=== PATIENT | female | born 1995 | race Caucasian/White ===

== ENCOUNTER 2018-04-30 18:23 | Observation (INO) ==
[2018-04-30 18:36] VITALS: BMI 30.6
--- NOTE | 2018-04-30 19:06 | DR.GENAD ---
HPI Time Seen Time Seen by Provider: 04/30/18 18:40 PCP Primary Care Physician: erin Complaint/Symptoms Chief Complaint:: pt states" [address] Van told me i had cryptospiridium she gave a rx for zofran i have a appointment with dr lowe in the am. I'm not keeping anything down I am either vomiting or having diarrhea every hour the diarrhea is worse. My heart rate started acting up and with my hx I got concerned" Source History Provided: Patient Mode of Arrival Mode of Arrival: Ambulatory Timing Onset of Chief Complaint: 04/25/18 PMH PMH Past Medical History: Yes Past Medical History: SVT Past Surgical History: Yes Past Surgical History Comment: heart ablasion Family History History of Family Medical Conditions: Yes Family Medical History: Hypertension Social History Do you use any recreational Drugs:: No infectious screening In the last 2 months have you had wt loss of >10#?: NO Have you had fever, night sweats or hemotysis?: No Have you traveled outside the country in the last 6 months?: No Isolation: Standard PE Vital Signs Vitals: Temperature 97.8 F Pulse Rate [Apical] 78 Pulse Rate 111 Respiratory Rate 22 Blood Pressure [Right Arm] 133/61 Blood Pressure [Left Arm] 115/74 Blood Pressure 118/65 O2 Sat by Pulse Oximetry 96 General Limitations: No Limitations General Appearance: Alert and In No Apparent Distress Head Head Exam: Normal Inspection, Atraumatic and Normocephalic Eyes Eye exam: Normal Appearance, PERRL and EOMI ENT ENT Exam: Normal Exam and Normal Oropharynx External Ear Exam: Normal External Inspection and Auricular Hematoma TM/Canal Exam: Bilateral: Normal Nose Exam: Normal Nose Exam Mouth Exam: Normal Inspection Throat Exam: Normal Inspection Neck Neck Exam: Normal Inspection and Full ROM Chest Chest Inspection: Normal Inspection and Symmetric Chest Wall Rise Respiratory Respiratory Exam: Normal Lung Sounds Bilat Respiratory Exam: Bilateral: Clear to Auscultation Cardiovascular Cardiovascular Exam: Regular Rate and Normal Rhythm Abdominal Exam Abdominal Exam: Normal Inspection, Normal Bowel Sounds and Soft Abdominal Tenderness: RUQ Extremities Extremities Exam: Normal Inspection and Full ROM Back Back Exam: Normal Inspection and Full ROM Neurologic Neurological Exam: Alert, Oriented X3 and CN II-XII Intact Psychiatric Psychiatric Exam: Normal Affect Skin Skin Exam: Warm, Dry and Intact COURSE Consultation Called: 20:40 Consultation Comments: Dr. Kirk agreed to admit for further evaluation and treatment ROR Labs Reviewed Laboratory Results Reviewed?: Yes Result Diagrams: 05/01/18 04:00 05/01/18 04:00 Laboratory: WBC 6.9 X10^3/uL (3.6-10.0) 05/01/18 04:00 RBC 6.21 X10^6/uL (3.5-5.4) H 05/01/18 04:00 Hgb 12.0 g/dL (12.0-16.0) 05/01/18 04:00 Hct 37.6 % (36.0-47.0) 05/01/18 04:00 MCV 60.4 fL (80.0-100.0) L 05/01/18 04:00 MCH 19.3 pg (27.0-34.0) L 05/01/18 04:00 MCHC 31.9 g/dL (33.0-35.0) L 05/01/18 04:00 RDW 18.3 % (11.6-16.5) H 05/01/18 04:00 Plt Count 300 X10^3/uL (150.0-450.0) 05/01/18 04:00 Plt Count Comment Adequate (ADEQUATE) 05/01/18 04:00 MPV 8.8 fL (7.4-11.0) 05/01/18 04:00 Neut % (Auto) 48.5 % (42.0-75.0) 05/01/18 04:00 Lymph % (Auto) 31.5 % (21.0-51.0) 05/01/18 04:00 [place] % (Auto) 17.4 % (0.0-13.0) H 05/01/18 04:00 Eos % (Auto) 1.9 % (0.9-2.9) 05/01/18 04:00 Baso % (Auto) 0.7 % (0.2-1.0) 05/01/18 04:00 Neut # (Auto) 3.4 x10^3/uL (2.2-4.8) 05/01/18 04:00 Lymph # (Auto) 2.2 X10^3/uL (1.3-2.9) 05/01/18 04:00 [place] # (Auto) 1.2 x10^3/uL (0.3-0.8) H 05/01/18 04:00 Eos # (Auto) 0.1 x10^3/uL (0.0-0.2) 05/01/18 04:00 Baso # (Auto) 0.0 X10^3/uL (0.0-0.1) 05/01/18 04:00 Absolute Nucleated RBC 0.0 /100WBC 05/01/18 04:00 Plt Morphology Comment Normal (NORMAL) 05/01/18 04:00 RBC Morphology Abnormal (NORMAL) A 05/01/18 04:00 Hypochromasia 3+ A 05/01/18 04:00 Poikilocytosis Slight A 04/30/18 19:28 Anisocytosis Slight A 04/30/18 19:28 Microcytosis 2+ A 05/01/18 04:00 Ovalocytes Slight A 04/30/18 19:28 Sodium 141 mmol/L (136-145) 05/01/18 04:00 Corrected Sodium TNP 05/01/18 04:00 Potassium 3.1 mmol/L (3.5-5.1) L 05/01/18 04:00 Chloride 104 mmol/L (98-107) 05/01/18 04:00 Carbon Dioxide 26.4 mmol/L (21-32) 05/01/18 04:00 BUN 7 mg/dL (7-18) 05/01/18 04:00 Creatinine 0.94 mg/dL (0.55-1.02) 05/01/18 04:00 Est GFR (MDRD) Af Amer > 60 (>60) 05/01/18 04:00 Est GFR (MDRD) Non-Af > 60 (>60) 05/01/18 04:00 Glucose 84 mg/dL (65-99) 05/01/18 04:00 Calcium 8.4 mg/dL (8.5-10.1) L 05/01/18 04:00 Corrected Calcium 9.1 mg/dL (8.5-10.1) 05/01/18 04:00 Magnesium 1.6 mg/dL (1.7-2.9) L 05/01/18 04:00 Total Bilirubin 0.40 mg/dL (0.2-1.0) 05/01/18 04:00 AST 23 Units/L (15-37) 05/01/18 04:00 ALT 34 Units/L (12-78) 05/01/18 04:00 Alkaline Phosphatase 77 Units/L (46-116) 05/01/18 04:00 C-Reactive Protein 29.30 mg/L (0-3.0) H 04/30/18 19:28 Total Protein 6.7 g/dL (6.4-8.2) 05/01/18 04:00 Albumin 3.1 g/dL (3.4-5.0) L 05/01/18 04:00 Globulin 3.6 g/dL (2.5-4.5) 05/01/18 04:00 Albumin/Globulin Ratio 0.9 Ratio (1.1-2.1) L 05/01/18 04:00 Specimen Type Cancelled 05/01/18 05:00 Urine Color Cancelled 05/01/18 05:00 Urine Appearance Cancelled 05/01/18 05:00 Urine pH Cancelled 05/01/18 05:00 Ur Specific [place] Cancelled 05/01/18 05:00 Urine Protein Cancelled 05/01/18 05:00 Urine Glucose (UA) Cancelled 05/01/18 05:00 Urine Ketones Cancelled 05/01/18 05:00 Urine Occult Blood Cancelled 05/01/18 05:00 Urine Nitrite Cancelled 05/01/18 05:00 Urine Bilirubin Cancelled 05/01/18 05:00 Urine Urobilinogen Cancelled 05/01/18 05:00 Ur Leukocyte Esterase Cancelled 05/01/18 05:00 Diagnosis Discharge Problem: Infection due to cryptosporidium, Acute hypokalemia ADDITIONAL NOTES Additional Notes Additional Notes: Patient admitted for further treatment and evaluation
[2018-04-30] MEDS ORDERED: NS 1000 ML 1,000 ML IV ONE (19:20)
[2018-04-30] MEDS ORDERED: PHENERGAN INJ 25 MG IV ONE (19:20)
[2018-04-30] MEDS ORDERED: PHENERGAN INJ 25 MG ONE (19:23)
[2018-04-30] MEDS ORDERED: NS 1000 ML 0 ML ONE (19:23)
[2018-04-30 19:36] LABS: BASOPHILS % (AUTO) 0.4 % (0.2-1.0); EOSINOPHILS # (AUTO) 0.1 x10^3/uL (0.0-0.2); EOSINOPHILS % (AUTO) 1.1 % (0.9-2.9); HEMATOCRIT 43.2 % (36.0-47.0); HEMOGLOBIN 13.9 g/dL (12.0-16.0); LYMPHOCYTES # (AUTO) 1.7 X10^3/uL (1.3-2.9); LYMPHOCYTES % (AUTO) 16.6 % (21.0-51.0); MEAN CORPUSCULAR HEMOGLOBIN 19.4 pg (27.0-34.0); MEAN CORPUSCULAR HGB CONC 32.2 g/dL (33.0-35.0); MEAN CORPUSCULAR VOLUME 60.3 fL (80.0-100.0); MEAN PLATELET VOLUME 8.3 fL (7.4-11.0); MONOCYTES # (AUTO) 1.2 x10^3/uL (0.3-0.8); MONOCYTES % (AUTO) 11.9 % (0.0-13.0); NEUTROPHILS # (AUTO) 6.9 x10^3/uL (2.2-4.8); PLATELET COUNT 344 X10^3/uL (150.0-450.0); RED BLOOD COUNT 7.16 X10^6/uL (3.5-5.4); RED CELL DISTRIBUTION WIDTH 18.5 % (11.6-16.5); WHITE BLOOD COUNT 9.9 X10^3/uL (3.6-10.0)
[2018-04-30 19:49] LABS: ALANINE AMINOTRANSFERASE 41 Units/L (12-78); ALBUMIN 3.8 g/dL (3.4-5.0); ALKALINE PHOSPHATASE 96 Units/L (46-116); ASPARTATE AMINO TRANSFERASE 29 Units/L (15-37); BLOOD UREA NITROGEN 9 mg/dL (7-18); CALCIUM 9.3 mg/dL (8.5-10.1); CARBON DIOXIDE 26.5 mmol/L (21-32); CREATININE 0.88 mg/dL (0.55-1.02); TOTAL PROTEIN 8.2 g/dL (6.4-8.2); eGFR NON BLACK RACES > 60 (>60)
[2018-04-30 19:56] LABS: CHLORIDE 97 mmol/L (98-107); SODIUM 135 mmol/L (136-145)
[2018-04-30 20:08] LABS: PLATELET MORPHOLOGY COMMENT NORMAL (NORMAL)
[2018-04-30 20:09] LABS: ANISOCYTOSIS SLIGHT; HYPOCHROMASIA 3+; MICROCYTOSIS 2+; OVALOCYTES SLIGHT; POIKILOCYTOSIS SLIGHT
[2018-04-30] MEDS ORDERED: K-LYTE EFFERVESCENT ONE (20:14)
[2018-04-30] MEDS: K-LYTE EFFERVESCENT PO ONE (20:22)
[2018-04-30] MEDS ORDERED: NS 1000 ML 1,000 ML ONE (21:11)
[2018-04-30] MEDS ORDERED: ZOFRAN SYRUP 4 MG UDC PO ONE (21:12)
[2018-04-30] MEDS: NS + KCL 20 MEQ/L 1,000 ML IV SCH (21:16)
[2018-04-30] MEDS ORDERED: ZOFRAN SYRUP 4 MG UDC ONE (21:19)
[2018-04-30] MEDS ORDERED: NS 1000 ML 1,000 ML IV SCH (22:00)
[2018-04-30] MEDS ORDERED: ATIVAN TAB 1 MG ONE (22:22)
[2018-04-30] MEDS ORDERED: ROCEPHIN 1 GRAM IV PREMIX 1 G/50 ML IV.SOLN. IV SCH (23:00)
[2018-04-30] MEDS: ROCEPHIN VIAL 2 GRAMS IVP SCH (23:45)
[2018-05-01 05:23] LABS: BASOPHILS % (AUTO) 0.7 % (0.2-1.0); EOSINOPHILS # (AUTO) 0.1 x10^3/uL (0.0-0.2); EOSINOPHILS % (AUTO) 1.9 % (0.9-2.9); HEMATOCRIT 37.6 % (36.0-47.0); LYMPHOCYTES # (AUTO) 2.2 X10^3/uL (1.3-2.9); LYMPHOCYTES % (AUTO) 31.5 % (21.0-51.0); MEAN CORPUSCULAR HEMOGLOBIN 19.3 pg (27.0-34.0); MEAN CORPUSCULAR HGB CONC 31.9 g/dL (33.0-35.0); MEAN CORPUSCULAR VOLUME 60.4 fL (80.0-100.0); MEAN PLATELET VOLUME 8.8 fL (7.4-11.0); MONOCYTES # (AUTO) 1.2 x10^3/uL (0.3-0.8); MONOCYTES % (AUTO) 17.4 % (0.0-13.0); NEUTROPHILS # (AUTO) 3.4 x10^3/uL (2.2-4.8); NEUTROPHILS % (AUTO) 48.5 % (42.0-75.0); PLATELET COUNT 300 X10^3/uL (150.0-450.0); RED BLOOD COUNT 6.21 X10^6/uL (3.5-5.4); RED CELL DISTRIBUTION WIDTH 18.3 % (11.6-16.5); WHITE BLOOD COUNT 6.9 X10^3/uL (3.6-10.0)
[2018-05-01 05:40] LABS: ALANINE AMINOTRANSFERASE 34 Units/L (12-78); ALBUMIN 3.1 g/dL (3.4-5.0); ALKALINE PHOSPHATASE 77 Units/L (46-116); ASPARTATE AMINO TRANSFERASE 23 Units/L (15-37); BLOOD UREA NITROGEN 7 mg/dL (7-18); CALCIUM 8.4 mg/dL (8.5-10.1); CARBON DIOXIDE 26.4 mmol/L (21-32); CHLORIDE 104 mmol/L (98-107); COR CA(FOR HYPOALB) 9.1 mg/dL (8.5-10.1); CREATININE 0.94 mg/dL (0.55-1.02); SODIUM 141 mmol/L (136-145); TOTAL PROTEIN 6.7 g/dL (6.4-8.2); eGFR NON BLACK RACES > 60 (>60)
[2018-05-01] MEDS: NS + KCL 20 MEQ/L 1,000 ML IV SCH ×2 (05:52→22:04)
[2018-05-01 06:01] LABS: HYPOCHROMASIA 3+; MICROCYTOSIS 2+; PLATELET MORPHOLOGY COMMENT NORMAL (NORMAL)
[2018-05-01] MEDS ORDERED: POTASSIUM CHLORIDE LIQ 20 MEQ UDC PO ONE (06:19)
[2018-05-01] MEDS ORDERED: POTASSIUM CHLORIDE LIQ 20 MEQ UDC ONE (06:22)
[2018-05-01] MEDS: MAGNESIUM SULFATE 1 GRAM/100 mL PREMIX 1 GM/100 ML BAG IV PRN ×2 (09:52→11:25)
[2018-05-01 10:10] LABS: BILIRUBIN,URINE NEGATIVE (NEGATIVE); BLOOD/HEMOGLOBIN,URINE NEGATIVE (NEGATIVE); GLUCOSE, URINE NEGATIVE (NEGATIVE); KETONES,URINE 1+ (NEGATIVE); LEUKOCYTE ESTERASE ,URINE 1+ (NEGATIVE); NITRITES,URINE NEGATIVE (NEGATIVE); PROTEIN,URINE 2+ (NEGATIVE); UROBILINOGEN,URINE NORMAL (NORMAL)
[2018-05-01 10:12] LABS: APPEARANCE,URINE SLIGHTLY HAZY (CLEAR); COLOR,URINE DARK YELLOW (YELLOW)
[2018-05-01 10:20] LABS: BACTERIA,URINE TRACE /HPF (NEGATIVE); SQUAMOUS EPITHELIAL CELL,UR MODERATE /HPF (NEGATIVE)
[2018-05-01 10:21] LABS: AMORPHOUS SEDIMENT,UR 1+ /HPF (NEGATIVE); MUCUS,URINE FEW /HPF (NEGATIVE)
[2018-05-01] MEDS ORDERED: ZOFRAN INJ 4 MG VIAL IVP PRN (18:27)
--- NOTE | 2018-05-01 18:31 | DR.H&P ---
H&P - History & Physical for Day of: H&P Date: 04/30/18 - Chief Complaint Chief Complaint: NAUSEA, VOMITING, DIARRHEA - History of Present Illness History of Present Illness: IS A 23 YEAR OLD WHITE MALE WHO PRESENTED TO THE EMERGENCY ROOM WITH COMPLAINTS OF NAUSEA, VOMITING, AND DIARRHEA. SHE WAS SEEN IN THE ER ON 04/27/18 WELL. SHE TESTED POSITIVE FOR CRYPTOSPIRIDIUM. PAST MEDICAL HISTORY INCLUDES SVT AND A HEART ABLASION. ON ARRIVAL, VITALS WERE 98.4-111-18-98%-118/65. LABS WERE OBTAINED. ABNORMAL LAB VALUES INCLUDE THE FOLLOWING: RBC 7.16, SODIUM 135, POTASSIUM 3.0, CHLORIDE 97, CRP 29.30. SHE WAS GIVEN A NORMAL SALINE BOLUS, PHENERGAN 12.5MG IV X 1, AND ZOFRAN 4GM PO X 1 DOSE WITH ONLY MILD IMPROVEMENT IN SYMPTOMS. SHE WAS ADMITTED FOR FURTHER EVALUATION AND TREATMENT OF DEHYHDRATION, HYPOKALEMIA, CRYPTOSPROIDIUM, AND INTRACTABLE NAUSEA AND VOMITING. SHE WAS STARTED ON NS WITH 20MEQ KCL AT 125ML/HR AND ROCEPHIN 2GM IV HS. OTHERWISE, WE PLAN TO FOLLOW UP WITH AM LABS AND CONTINUE TO MONITOR. - Past Medical History Past Medical History: SVT - Past Surgical History Additional Surgical History: ABLASION - Family History Family Medical History: Hypertension - Social History Does patient currently use any type of tobacco product: No Have you used tobacco products in the last 12 months: No Does any household member use tobacco: No Alcohol Use: Occasionally Drug Use: None - Medications Home Medications: Sulfa (Sulfonamide Antibiotics) [SULFA] Allergy (Verified 04/19/18 19:32) CONTINUE taking the following medications NK 05/01/18 [History] - Review of Systems Constitutional: Fever, Sweats, Weakness Eyes: No Symptoms Reported ENT: No Symptoms Reported Respiratory: No Symptoms Reported Cardiovascular: No Symptoms Reported Gastrointestinal: Nausea, Vomiting, Abdominal Pain, Diarrhea Genitourinary: No Symptoms Reported Musculoskeletal: No Symptoms Reported Skin: No Symptoms Reported Neurological: Weakness - Physical Exam Vital Signs: Temperature 97.6 F Pulse Rate [Apical] 78 Pulse Rate 111 Respiratory Rate 18 Blood Pressure [Right Arm] 109/60 Blood Pressure [Left Arm] 115/74 Blood Pressure 118/65 O2 Sat by Pulse Oximetry 100 Oriented: Normal Eyes: Normal Ear: Normal Nose: Normal Throat: Normal Respiratory: Clear Throughout Cardiovascular: Tachycardia. negative: S3, S4, Murmur : Normal Auscultation: Bowel Sounds: Normal Palpation: Normal Tenderness: Diffuse, Mild Skin: Normal Musculoskeletal: Normal Psychiatric: Normal Mood Description: Calm Affect: Normal Speech Pattern: Clear - Assessment/Plan (1) Dehydration Status: Acute Plan: NORMAL SALINE WITH 20MEQ KCL @125ML/HR, CONTINUE TO MONITOR (2) Diarrhea due to cryptosporidium Status: Acute (3) Infection due to cryptosporidium Status: Acute Plan: ROCEPHIN 2GM IV HS, CONTINUE TO MONITOR (4) Acute hypokalemia Status: Acute Plan: NORMAL SALINE WITH 20MEQ KCL @125ML/HR, CONTINUE TO MONITOR - Allergies Allergies/Adverse Reactions: Allergies Allergy/AdvReac Type Severity Reaction Status Date / Time Sulfa (Sulfonamide Allergy Verified 04/19/18 19:32 Antibiotics) [SULFA]
--- NOTE | 2018-05-01 19:21 | PCM.PROG ---
Progress Note - Progress Note for Day of Date of Exam: 05/01/18 - Subjective Subjective: WAS ADMITTED FOR DEHYDRATION, HYPOKALEMIA, CRYPTOSPROIDIUM, AND INTRACTABLE NAUSEA AND VOMTING. TODAY, SHE IS ALERT AND ORIENTED, LYING IN BED ON MORNING ROUNDS. SHE CONTINUES WITH NAUSEA AND DIARRHEA, BUT DENIES VOMITING THIS MORNING. SHE ALSO COMPLAINS OF ABDOMINAL PAIN. ON EXAMINATION, HEART IS REGULAR IN RATE AND RHYTHM. BILATERAL LUNGS ARE CLEAR TO AUSCULTATION. ABDOMEN IS ROUND, SOFT, AND NOTED WITH MILD, DIFFUSE TENDERNESS TO PALPATION. HYPERACTIVE BOWEL SOUNDS NOTED IN ALL QUADRANTS. HER VITALS THIS MORNING ARE 98.0-76-18-99%-109/60. LABS WERE OBTAINED. ABNORMAL LAB VALUES INCLUDE THE FOLLOWING: RBC 6.21, POTASSIUM 3.1, CALCIUM 8.4, MAGNESIUM 1.6, ALBUMIN 3.1. A URINALYSIS WAS OBTAINED AND REVEALED: WBC 3-5, RBC 3-5, LEUKOCYTES 1+, BACTERIA TRACE. TODAY, WE WILL OBTAIN AN HIV SCREEN. OTHERWISE, WE WILL CONTINUE WITH CURRENT PLAN OF CARE. WE WILL FOLLOW UP WITH AM LABS AND CONTINUE TO MONITOR. - Past Medical Family Social History Past Med/Fam/Surg Hx: No changes since H&P Allergies: Allergies Sulfa (Sulfonamide Antibiotics) [SULFA] Allergy (Verified 04/19/18 19:32) - Review of Systems ROS: No change since H&P - Vital Signs and I&O's Vital Signs: Temperature 98.2 F Pulse Rate [Apical] 79 Pulse Rate 111 Respiratory Rate 18 Blood Pressure [Right Arm] 124/73 Blood Pressure [Left Arm] 115/74 Blood Pressure 118/65 O2 Sat by Pulse Oximetry 100 Intake and Output: Intake & Output 04/29/18 04/30/18 05/01/18 05/02/18 11:59 11:59 11:59 11:59 Intake Total 0 / 0 780 / 780 Balance 0 / 0 780 / 780 - Physical Exam Oriented: Normal Eyes: Normal Ear: Normal Nose: Normal Throat: Normal Respiratory: Normal Cardiovascular: Normal. negative: S3, S4, Murmur : Normal Auscultation: Bowel Sounds: Normal Palpation: Normal Tenderness: Diffuse, Mild Skin: Normal Musculoskeletal: Normal Psychiatric: Normal Mood Description: Calm Affect: Normal Speech Pattern: Clear - Laboratory and Diagnostics Result Diagrams: 05/01/18 04:00 05/01/18 08:17 Labs: Laboratory WBC 6.9 X10^3/uL (3.6-10.0) 05/01/18 04:00 RBC 6.21 X10^6/uL (3.5-5.4) H 05/01/18 04:00 Hgb 12.0 g/dL (12.0-16.0) 05/01/18 04:00 Hct 37.6 % (36.0-47.0) 05/01/18 04:00 MCV 60.4 fL (80.0-100.0) L 05/01/18 04:00 MCH 19.3 pg (27.0-34.0) L 05/01/18 04:00 MCHC 31.9 g/dL (33.0-35.0) L 05/01/18 04:00 RDW 18.3 % (11.6-16.5) H 05/01/18 04:00 Plt Count 300 X10^3/uL (150.0-450.0) 05/01/18 04:00 Plt Count Comment Adequate (ADEQUATE) 05/01/18 04:00 MPV 8.8 fL (7.4-11.0) 05/01/18 04:00 Neut % (Auto) 48.5 % (42.0-75.0) 05/01/18 04:00 Lymph % (Auto) 31.5 % (21.0-51.0) 05/01/18 04:00 [place] % (Auto) 17.4 % (0.0-13.0) H 05/01/18 04:00 Eos % (Auto) 1.9 % (0.9-2.9) 05/01/18 04:00 Baso % (Auto) 0.7 % (0.2-1.0) 05/01/18 04:00 Neut # (Auto) 3.4 x10^3/uL (2.2-4.8) 05/01/18 04:00 Lymph # (Auto) 2.2 X10^3/uL (1.3-2.9) 05/01/18 04:00 [place] # (Auto) 1.2 x10^3/uL (0.3-0.8) H 05/01/18 04:00 Eos # (Auto) 0.1 x10^3/uL (0.0-0.2) 05/01/18 04:00 Baso # (Auto) 0.0 X10^3/uL (0.0-0.1) 05/01/18 04:00 Absolute Nucleated RBC 0.0 /100WBC 05/01/18 04:00 Plt Morphology Comment Normal (NORMAL) 05/01/18 04:00 RBC Morphology Abnormal (NORMAL) A 05/01/18 04:00 Hypochromasia 3+ A 05/01/18 04:00 Poikilocytosis Slight A 04/30/18 19:28 Anisocytosis Slight A 04/30/18 19:28 Microcytosis 2+ A 05/01/18 04:00 Ovalocytes Slight A 04/30/18 19:28 Sodium 141 mmol/L (136-145) 05/01/18 04:00 Corrected Sodium TNP 05/01/18 04:00 Potassium 4.0 mmol/L (3.5-5.1) 05/01/18 08:17 Chloride 104 mmol/L (98-107) 05/01/18 04:00 Carbon Dioxide 26.4 mmol/L (21-32) 05/01/18 04:00 BUN 7 mg/dL (7-18) 05/01/18 04:00 Creatinine 0.94 mg/dL (0.55-1.02) 05/01/18 04:00 Est GFR (MDRD) Af Amer > 60 (>60) 05/01/18 04:00 Est GFR (MDRD) Non-Af > 60 (>60) 05/01/18 04:00 Glucose 84 mg/dL (65-99) 05/01/18 04:00 Calcium 8.4 mg/dL (8.5-10.1) L 05/01/18 04:00 Corrected Calcium 9.1 mg/dL (8.5-10.1) 05/01/18 04:00 Magnesium 1.6 mg/dL (1.7-2.9) L 05/01/18 04:00 Total Bilirubin 0.40 mg/dL (0.2-1.0) 05/01/18 04:00 AST 23 Units/L (15-37) 05/01/18 04:00 ALT 34 Units/L (12-78) 05/01/18 04:00 Alkaline Phosphatase 77 Units/L (46-116) 05/01/18 04:00 C-Reactive Protein 29.30 mg/L (0-3.0) H 04/30/18 19:28 Total Protein 6.7 g/dL (6.4-8.2) 05/01/18 04:00 Albumin 3.1 g/dL (3.4-5.0) L 05/01/18 04:00 Globulin 3.6 g/dL (2.5-4.5) 05/01/18 04:00 Albumin/Globulin Ratio 0.9 Ratio (1.1-2.1) L 05/01/18 04:00 Specimen Type Clean catch urine 05/01/18 09:05 Urine Color Dark yellow (YELLOW) 05/01/18 09:05 Urine Appearance Slightly hazy (CLEAR) 05/01/18 09:05 Urine pH 6.0 (5.0 - 8.0) 05/01/18 09:05 Ur Specific [place] 1.015 (1.000-1.030) 05/01/18 09:05 Urine Protein 2+ (NEGATIVE) 05/01/18 09:05 Urine Glucose (UA) Negative (NEGATIVE) 05/01/18 09:05 Urine Ketones 1+ (NEGATIVE) 05/01/18 09:05 Urine Occult Blood Negative (NEGATIVE) 05/01/18 09:05 Urine Nitrite Negative (NEGATIVE) 05/01/18 09:05 Urine Bilirubin Negative (NEGATIVE) 05/01/18 09:05 Urine Urobilinogen Normal (NORMAL) 05/01/18 09:05 Ur Leukocyte Esterase 1+ (NEGATIVE) 05/01/18 09:05 Urine RBC 3-5 /HPF (NONE SEEN) 05/01/18 09:05 Urine WBC 3-5 /HPF (NONE SEEN) 05/01/18 09:05 Ur Squamous Epith Cells Moderate /HPF (NEGATIVE) 05/01/18 09:05 Amorphous Sediment 1+ /HPF (NEGATIVE) 05/01/18 09:05 Urine Bacteria Trace /HPF (NEGATIVE) 05/01/18 09:05 Urine Mucus Few /HPF (NEGATIVE) 05/01/18 09:05 Ur Culture Indicated? No/not indicated 05/01/18 09:05 - Plan (1) Dehydration Status: Acute Plan: NORMAL SALINE WITH 20MEQ KCL @125ML/HR, CONTINUE TO MONITOR (2) Diarrhea due to cryptosporidium Status: Acute (3) Infection due to cryptosporidium Status: Acute Plan: ROCEPHIN 2GM IV HS, CONTINUE TO MONITOR (4) Acute hypokalemia Status: Acute Plan: NORMAL SALINE WITH 20MEQ KCL @125ML/HR, CONTINUE TO MONITOR
[2018-05-01] MEDS: ROCEPHIN VIAL 2 GRAMS IVP SCH (20:51)
[2018-05-01] MEDS ORDERED: MAALOX or MYLANTA PO PRN (21:32)
[2018-05-02] MEDS: K-LYTE EFFERVESCENT PO ONE (01:58)
[2018-05-02] MEDS: NS + KCL 20 MEQ/L 1,000 ML IV SCH ×4 (04:00→22:22)
[2018-05-02 06:07] LABS: BASOPHILS % (AUTO) 0.4 % (0.2-1.0); EOSINOPHILS # (AUTO) 0.1 x10^3/uL (0.0-0.2); EOSINOPHILS % (AUTO) 2.1 % (0.9-2.9); HEMATOCRIT 33.7 % (36.0-47.0); HEMOGLOBIN 10.7 g/dL (12.0-16.0); LYMPHOCYTES # (AUTO) 2.3 X10^3/uL (1.3-2.9); LYMPHOCYTES % (AUTO) 38.3 % (21.0-51.0); MEAN CORPUSCULAR HEMOGLOBIN 19.4 pg (27.0-34.0); MEAN CORPUSCULAR HGB CONC 31.7 g/dL (33.0-35.0); MEAN PLATELET VOLUME 8.8 fL (7.4-11.0); MONOCYTES # (AUTO) 0.8 x10^3/uL (0.3-0.8); MONOCYTES % (AUTO) 13.2 % (0.0-13.0); NEUTROPHILS # (AUTO) 2.7 x10^3/uL (2.2-4.8); PLATELET COUNT 257 X10^3/uL (150.0-450.0); RED BLOOD COUNT 5.52 X10^6/uL (3.5-5.4); RED CELL DISTRIBUTION WIDTH 18.4 % (11.6-16.5); WHITE BLOOD COUNT 5.9 X10^3/uL (3.6-10.0)
[2018-05-02 06:18] LABS: ALANINE AMINOTRANSFERASE 27 Units/L (12-78); ALBUMIN 2.6 g/dL (3.4-5.0); ALKALINE PHOSPHATASE 64 Units/L (46-116); ASPARTATE AMINO TRANSFERASE 16 Units/L (15-37); BLOOD UREA NITROGEN 2 mg/dL (7-18); CALCIUM 7.8 mg/dL (8.5-10.1); CARBON DIOXIDE 23.6 mmol/L (21-32); CHLORIDE 109 mmol/L (98-107); COR CA(FOR HYPOALB) 8.9 mg/dL (8.5-10.1); CREATININE 0.66 mg/dL (0.55-1.02); MAGNESIUM 1.7 mg/dL (1.7-2.9); SODIUM 142 mmol/L (136-145); TOTAL PROTEIN 5.7 g/dL (6.4-8.2); eGFR NON BLACK RACES > 60 (>60)
[2018-05-02 06:46] LABS: PLATELET MORPHOLOGY COMMENT NORMAL (NORMAL)
[2018-05-02 06:48] LABS: HYPOCHROMASIA 2+
[2018-05-02 06:49] LABS: MICROCYTOSIS 2+
[2018-05-02] MEDS ORDERED: POTASSIUM CHLORIDE LIQ 20 MEQ UDC PO PRN (08:07)
[2018-05-02] MEDS ORDERED: POTASSIUM CHL 60 MEQ/NS 0.45% 500 ML IV PRN (08:07)
[2018-05-02] MEDS ORDERED: POTASSIUM CHL 40 MEQ/NS 0.45% 500 ML IV PRN (08:07)
[2018-05-02] MEDS ORDERED: K-DUR TAB 20 MEQ PO PRN (08:07)
[2018-05-02] MEDS ORDERED: MICRO K EXTEN CAP 10 MEQ PO PRN (08:07)
[2018-05-02] MEDS ORDERED: K-RIDER 10 MEQ/NS 100 ML 10 MEQ/100 ML BAG IV PRN (08:07)
[2018-05-02] MEDS ORDERED: KLOR-CON PO PRN (08:07)
[2018-05-02] MEDS: MAGNESIUM SULFATE 1 GRAM/100 mL PREMIX 1 GM/100 ML BAG IV PRN ×2 (08:59→10:00)
[2018-05-02] MEDS: FLAGYL IV PREMIX 500 MG BAG 500 MG/100 ML BAG IV SCH ×2 (13:42→20:37)
--- NOTE | 2018-05-02 20:33 | PCM.PROG ---
Progress Note - Progress Note for Day of Date of Exam: 05/02/18 - Subjective Subjective: WAS ADMITTED FOR DEHYDRATION, HYPOKALEMIA, CRYPTOSPROIDIUM, AND INTRACTABLE NAUSEA AND VOMTING. TODAY, SHE IS ALERT AND ORIENTED, LYING IN BED ON MORNING ROUNDS. SHE CONTINUES WITH NAUSEA AND DIARRHEA, BUT DENIES VOMITING THIS MORNING. SHE ALSO COMPLAINS OF ABDOMINAL PAIN. ON EXAMINATION, HEART IS REGULAR IN RATE AND RHYTHM. BILATERAL LUNGS ARE CLEAR TO AUSCULTATION. ABDOMEN IS ROUND, SOFT, AND NOTED WITH MILD, DIFFUSE TENDERNESS TO PALPATION. HYPERACTIVE BOWEL SOUNDS NOTED IN ALL QUADRANTS. HER VITALS THIS MORNING ARE 98.1-88-18-100%-110/53. LABS WERE OBTAINED. ABNORMAL LAB VALUES INCLUDE THE FOLLOWING: RBC 5.52, RBC 10.7, HCT 33.7, CHLORIDE 109, BUN 2, CALCIUM 7.8, TOTAL PROTEIN 5.7, ALBUMIN 2.6. HIV SCREEN PENDING. TODAY, WE WILL START FLAGYL 500MG IV Q6H. SHE CONTINUES TO RECEIVE ROCEPHIN 2GM IV DAILY. OTHERWISE, WE WILL CONTINUE WITH CURRENT PLAN OF CARE. WE WILL FOLLOW UP WITH AM LABS AND CONTINUE TO MONITOR. - Past Medical Family Social History Past Med/Fam/Surg Hx: No changes since H&P Allergies: Allergies Sulfa (Sulfonamide Antibiotics) [SULFA] Allergy (Verified 04/19/18 19:32) - Review of Systems ROS: No change since H&P - Vital Signs and I&O's Vital Signs: Temperature 98.3 F Pulse Rate [Apical] 73 Pulse Rate 111 Respiratory Rate 18 Blood Pressure [Right Arm] 116/73 Blood Pressure [Left Arm] 115/74 Blood Pressure 118/65 O2 Sat by Pulse Oximetry 100 Intake and Output: Intake & Output 04/30/18 05/01/18 05/02/18 05/03/18 11:59 11:59 11:59 11:59 Intake Total 0 / 0 2400 / 2400 1720 / 1720 Output Total 10 / 10 110 / 110 Balance 0 / 0 2390 / 2390 1610 / 1610 - Physical Exam Oriented: Normal Eyes: Normal Ear: Normal Nose: Normal Throat: Normal Respiratory: Normal Cardiovascular: Normal. negative: S3, S4, Murmur : Normal Auscultation: Bowel Sounds: Normal Palpation: Normal Tenderness: Diffuse, Mild Skin: Normal Musculoskeletal: Normal Psychiatric: Normal Mood Description: Calm Affect: Normal Speech Pattern: Clear, Appropriate - Laboratory and Diagnostics Result Diagrams: 05/02/18 05:15 05/02/18 05:15 Labs: Laboratory WBC 5.9 X10^3/uL (3.6-10.0) 05/02/18 05:15 RBC 5.52 X10^6/uL (3.5-5.4) H 05/02/18 05:15 Hgb 10.7 g/dL (12.0-16.0) L 05/02/18 05:15 Hct 33.7 % (36.0-47.0) L 05/02/18 05:15 MCV 61.0 fL (80.0-100.0) L 05/02/18 05:15 MCH 19.4 pg (27.0-34.0) L 05/02/18 05:15 MCHC 31.7 g/dL (33.0-35.0) L 05/02/18 05:15 RDW 18.4 % (11.6-16.5) H 05/02/18 05:15 Plt Count 257 X10^3/uL (150.0-450.0) 05/02/18 05:15 Plt Count Comment Adequate (ADEQUATE) 05/02/18 05:15 MPV 8.8 fL (7.4-11.0) 05/02/18 05:15 Neut % (Auto) 46.0 % (42.0-75.0) 05/02/18 05:15 Lymph % (Auto) 38.3 % (21.0-51.0) 05/02/18 05:15 [place] % (Auto) 13.2 % (0.0-13.0) H 05/02/18 05:15 Eos % (Auto) 2.1 % (0.9-2.9) 05/02/18 05:15 Baso % (Auto) 0.4 % (0.2-1.0) 05/02/18 05:15 Neut # (Auto) 2.7 x10^3/uL (2.2-4.8) 05/02/18 05:15 Lymph # (Auto) 2.3 X10^3/uL (1.3-2.9) 05/02/18 05:15 [place] # (Auto) 0.8 x10^3/uL (0.3-0.8) 05/02/18 05:15 Eos # (Auto) 0.1 x10^3/uL (0.0-0.2) 05/02/18 05:15 Baso # (Auto) 0.0 X10^3/uL (0.0-0.1) 05/02/18 05:15 Absolute Nucleated RBC 0.1 /100WBC 05/02/18 05:15 Plt Morphology Comment Normal (NORMAL) 05/02/18 05:15 RBC Morphology Abnormal (NORMAL) A 05/02/18 05:15 Hypochromasia 2+ A 05/02/18 05:15 Poikilocytosis Slight A 04/30/18 19:28 Anisocytosis [employer] 05/02/18 05:15 Microcytosis 2+ A 05/02/18 05:15 Ovalocytes Slight A 04/30/18 19:28 Sodium 142 mmol/L (136-145) 05/02/18 05:15 Corrected Sodium TNP 05/02/18 05:15 Potassium 3.6 mmol/L (3.5-5.1) 05/02/18 05:15 Chloride 109 mmol/L (98-107) H 05/02/18 05:15 Carbon Dioxide 23.6 mmol/L (21-32) 05/02/18 05:15 BUN 2 mg/dL (7-18) L 05/02/18 05:15 Creatinine 0.66 mg/dL (0.55-1.02) 05/02/18 05:15 Est GFR (MDRD) Af Amer > 60 (>60) 05/02/18 05:15 Est GFR (MDRD) Non-Af > 60 (>60) 05/02/18 05:15 Glucose 88 mg/dL (65-99) 05/02/18 05:15 Calcium 7.8 mg/dL (8.5-10.1) L 05/02/18 05:15 Corrected Calcium 8.9 mg/dL (8.5-10.1) 05/02/18 05:15 Magnesium 1.7 mg/dL (1.7-2.9) 05/02/18 05:15 Total Bilirubin 0.30 mg/dL (0.2-1.0) 05/02/18 05:15 AST 16 Units/L (15-37) 05/02/18 05:15 ALT 27 Units/L (12-78) 05/02/18 05:15 Alkaline Phosphatase 64 Units/L (46-116) 05/02/18 05:15 C-Reactive Protein 29.30 mg/L (0-3.0) H 04/30/18 19:28 Total Protein 5.7 g/dL (6.4-8.2) L 05/02/18 05:15 Albumin 2.6 g/dL (3.4-5.0) L 05/02/18 05:15 Globulin 3.1 g/dL (2.5-4.5) 05/02/18 05:15 Albumin/Globulin Ratio 0.8 Ratio (1.1-2.1) L 05/02/18 05:15 Specimen Type Clean catch urine 05/01/18 09:05 Urine Color Dark yellow (YELLOW) 05/01/18 09:05 Urine Appearance Slightly hazy (CLEAR) 05/01/18 09:05 Urine pH 6.0 (5.0 - 8.0) 05/01/18 09:05 Ur Specific [place] 1.015 (1.000-1.030) 05/01/18 09:05 Urine Protein 2+ (NEGATIVE) 05/01/18 09:05 Urine Glucose (UA) Negative (NEGATIVE) 05/01/18 09:05 Urine Ketones 1+ (NEGATIVE) 05/01/18 09:05 Urine Occult Blood Negative (NEGATIVE) 05/01/18 09:05 Urine Nitrite Negative (NEGATIVE) 05/01/18 09:05 Urine Bilirubin Negative (NEGATIVE) 05/01/18 09:05 Urine Urobilinogen Normal (NORMAL) 05/01/18 09:05 Ur Leukocyte Esterase 1+ (NEGATIVE) 05/01/18 09:05 Urine RBC 3-5 /HPF (NONE SEEN) 05/01/18 09:05 Urine WBC 3-5 /HPF (NONE SEEN) 05/01/18 09:05 Ur Squamous Epith Cells Moderate /HPF (NEGATIVE) 05/01/18 09:05 Amorphous Sediment 1+ /HPF (NEGATIVE) 05/01/18 09:05 Urine Bacteria Trace /HPF (NEGATIVE) 05/01/18 09:05 Urine Mucus Few /HPF (NEGATIVE) 05/01/18 09:05 Ur Culture Indicated? No/not indicated 05/01/18 09:05 - Plan (1) Dehydration Status: Acute Plan: NORMAL SALINE WITH 20MEQ KCL @125ML/HR, CONTINUE TO MONITOR (2) Diarrhea due to cryptosporidium Status: Acute Plan: [place] 500MG IV Q6H, ROCEPHIN 2GM IV DAILY, CONTINUE TO MONITOR (3) Infection due to cryptosporidium Status: Acute Plan: ROCEPHIN 2GM IV HS, CONTINUE TO MONITOR (4) Acute hypokalemia Status: Acute Plan: NORMAL SALINE WITH 20MEQ KCL @125ML/HR, CONTINUE TO MONITOR
[2018-05-02] MEDS: ROCEPHIN VIAL 2 GRAMS IVP SCH (20:37)
[2018-05-02] MEDS ORDERED: BUTT CREAM (COMPOUND) TOP PRN (22:39)
[2018-05-02] MEDS ORDERED: BUTT CREAM (COMPOUND) ONE (22:44)
[2018-05-03] MEDS: NS + KCL 20 MEQ/L 1,000 ML IV SCH ×2 (03:00→05:22)
[2018-05-03] MEDS: FLAGYL IV PREMIX 500 MG BAG 500 MG/100 ML BAG IV SCH ×3 (03:45→09:15)
[2018-05-03 06:24] LABS: BASOPHILS % (AUTO) 0.4 % (0.2-1.0); EOSINOPHILS # (AUTO) 0.1 x10^3/uL (0.0-0.2); EOSINOPHILS % (AUTO) 1.3 % (0.9-2.9); HEMATOCRIT 35.3 % (36.0-47.0); HEMOGLOBIN 11.2 g/dL (12.0-16.0); LYMPHOCYTES # (AUTO) 1.4 X10^3/uL (1.3-2.9); LYMPHOCYTES % (AUTO) 15.6 % (21.0-51.0); MEAN CORPUSCULAR HEMOGLOBIN 19.3 pg (27.0-34.0); MEAN CORPUSCULAR HGB CONC 31.8 g/dL (33.0-35.0); MEAN CORPUSCULAR VOLUME 60.6 fL (80.0-100.0); MEAN PLATELET VOLUME 8.7 fL (7.4-11.0); MONOCYTES # (AUTO) 0.8 x10^3/uL (0.3-0.8); MONOCYTES % (AUTO) 9.1 % (0.0-13.0); NEUTROPHILS # (AUTO) 6.4 x10^3/uL (2.2-4.8); NEUTROPHILS % (AUTO) 73.6 % (42.0-75.0); PLATELET COUNT 271 X10^3/uL (150.0-450.0); RED BLOOD COUNT 5.82 X10^6/uL (3.5-5.4); RED CELL DISTRIBUTION WIDTH 19.4 % (11.6-16.5); WHITE BLOOD COUNT 8.8 X10^3/uL (3.6-10.0)
[2018-05-03 06:33] LABS: ALANINE AMINOTRANSFERASE 24 Units/L (12-78); ALBUMIN 2.8 g/dL (3.4-5.0); ALKALINE PHOSPHATASE 68 Units/L (46-116); ASPARTATE AMINO TRANSFERASE 20 Units/L (15-37); BLOOD UREA NITROGEN 3 mg/dL (7-18); CALCIUM 8.2 mg/dL (8.5-10.1); CHLORIDE 107 mmol/L (98-107); COR CA(FOR HYPOALB) 9.2 mg/dL (8.5-10.1); CREATININE 0.59 mg/dL (0.55-1.02); SODIUM 140 mmol/L (136-145); eGFR NON BLACK RACES > 60 (>60)
[2018-05-03 07:38] LABS: HYPOCHROMASIA 3+; MICROCYTOSIS 2+; PLATELET MORPHOLOGY COMMENT NORMAL (NORMAL)
[2018-05-03] MEDS: MAGNESIUM SULFATE 1 GRAM/100 mL PREMIX 1 GM/100 ML BAG IV PRN ×2 (08:48→10:01)
[2018-05-03 09:18] VITALS: BP 103/57
== END 2018-05-03 12:05 | disposition home or self-care (01) ==
LOC: ER 18:25 → MED/SURG 18:25
PROVIDERS: ADMIT Internal Medicine; ATTEND Internal Medicine
DX: A07.2 Cryptosporidiosis; R11.2 Nausea with vomiting, unspecified; E86.0 Dehydration; R79.82 Elevated C-reactive protein (CRP); E87.6 Hypokalemia
CPT/HCPCS: 36415; 80053; 81001; 83735; 84132; 85025; 86140; 86701; 86703; 87389; 96365; 96367; 96374; 99282; 99284; A4216; A4222; S0030; G0378; J0696; J2405; J2550; J3475; J7030; J8499; Q0162